=== PATIENT | male | born 1980 | race Caucasian/White ===

== ENCOUNTER 2024-08-08 06:10 | Day surgery (SDC) | payer SELFPAY ==
[2024-08-08] VITALS (13 sets, daily range): BP systolic 102–137; BP diastolic 57–108
[~2024-08-08] VITALS: Ht 182.9 cm; Wt 106.0 kg
[~2024-08-08 06:10] MED LIST: LIONS MANE PO; Vitamin D2000 UNIT PO; [UNRECOGNIZED DRUG - OTHER] PO
[2024-08-08] MEDS ORDERED: Ropivacaine 0.5% HCl/Pf 123.125 MG,EPINEPHrine HCL 0.25 MG,Ketorolac Tromethamine 15 MG... INFIL SCH (06:20)
[2024-08-08] MEDS ORDERED: Lactated Ringer's 1,000 ML IV SCH ×2 (06:20→10:35)
[2024-08-08] MEDS ORDERED: Acetaminophen 500 MG Tab PO SCH ×2 (06:20→16:00)
[2024-08-08] MEDS ORDERED: Chlorhexidine Mouth Care 15 ML UDC MT SCH (06:20)
[2024-08-08] MEDS ORDERED: Tranexamic Acid 100 ML IV SCH (06:20)
[2024-08-08] MEDS ORDERED: CeFAZolin Sodium 2,000 MG in NS 100 ML IV SCH ×2 (06:20→16:00)
[2024-08-08] MEDS ORDERED: OxyCODONE HCL 10 MG TABCR PO SCH (06:20)
[2024-08-08] MEDS ORDERED: propofoL 60 ML IV ONE (07:12)
[2024-08-08] MEDS ORDERED: Midazolam HCl 1MG / ML 2ML Vial ONE (07:12)
[2024-08-08] MEDS ORDERED: FentaNYL Citrate 50 MCG/ML 2 ML Injection ONE ×2 (07:12→10:20)
[2024-08-08] MEDS ORDERED: Ondansetron HCl 2 MG / ML 2ML Vial ONE (07:14)
[2024-08-08] MEDS ORDERED: Dexamethasone Sod Phos 10 MG/ML 1ML VIAL ONE (07:14)
[2024-08-08] MEDS ORDERED: Phenylephrine HCl 100 MCG/ML-NS 10MLSYR (1MG/10ML) ONE (07:14)
--- NOTE | 2024-08-08 07:28 | NUR ---
Ambulatory in Day Surgery WITH STEADY GAIT. History, Chart, Medications and Allergies reviewed before start of procedure. Pre-Op teaching done. Pt verbalizes understanding AND DENIES ANY FURTHER QUESTIONS. ALL OF PT'S BELONGINGS PLACED IN PT'S PERSONAL BAG AND BAG PLACED UNDER GURN.
[2024-08-08] MEDS ORDERED: ePHEDrine Sulfate 50 MG/ML 1ML Injection ONE (07:53)
[2024-08-08] MEDS ORDERED: propofoL 40 ML IV ONE (08:59)
[2024-08-08] MEDS ORDERED: propofoL 20 ML IV ONE (09:41)
[2024-08-08] MEDS ORDERED: FLU VACC TS2024-25(6MOS UP)/PF 45 MCG/0.5 ML SYRINGE IM PRN (10:30)
[2024-08-08] MEDS ORDERED: DiphenhydrAMINE HCL 25 MG Cap PO PRN (10:30)
[2024-08-08] MEDS ORDERED: HYDROmorphone HCl/Pf 1MG SYR IV PRN (10:30)
[2024-08-08] MEDS ORDERED: OxyCODONE HCL 5 MG TAB PO PRN ×2 (10:35)
[2024-08-08] MEDS ORDERED: Ondansetron HCl 2 MG / ML 2ML Vial IV PRN (10:35)
[2024-08-08] MEDS ORDERED: Magnesium Hydroxide Conc 10 ML UDC PO PRN (10:35)
[2024-08-08] MEDS ORDERED: Metoclopramide HCl 5MG / ML 2ML Vial IV PRN (10:35)
[2024-08-08] MEDS ORDERED: Promethazine HCl 25 MG Tab PO PRN (10:40)
[2024-08-08] MEDS ORDERED: Bisacodyl 10 MG Supp PR PRN (10:40)
--- NOTE | 2024-08-08 11:42 | NUR ---
POST OP A+O X4, PT REPORTS TINGLING TO BLE, BUT ABLE TO WIGGLE TOES AND MOVE LEGS. REPORTS 7/10 L KNEE PAIN BUT DECLINES PAIN PILLS AND ONLY REQUESTS TORADOL. TORADOL GIVEN. L KNEE WITH AQUACEL/ANDREW WRAP IS CDI WITH POLAR PACK IN PLACE. PT ALREADY TOLERATED SNACKS WITH NO N/V. POST OP VS STABLE AND IN PROGRESS. CALL LIGHT WITHIN REACH.
[2024-08-08] MEDS ORDERED: Ketorolac Tromethamine 15mg Vial IV SCH (12:00)
[2024-08-08] MEDS ORDERED: ASPI81CH PO (13:51)
--- NOTE | 2024-08-08 14:57 | NUR ---
DISCHARGE PT EDUCATED ON AND RECEIVED PRINTED DC INSTRUCTIONS AND VERB AN UNDERSTANDING. NEW RX SENT ELECTRONICALLY PER PAULINO MARIE. EXTRA AQUACEL DRESSINGS SENT WITH PT. PT GATHERED ALL PERSONAL BELONGINGS. CLEARED THERAPY. PT LEFT WITH AT SIDE AND W/C OUT TO VEHICLE.
[2024-08-08] MEDS ORDERED: Docusate Sodium 100 MG Cap PO SCH (21:00)
[2024-08-09] MEDS ORDERED: Cholecalciferol 1000 Unit Tablet (=25MCG) PO SCH (09:00)
[2024-08-09] MEDS ORDERED: Aspirin 81 MG Chew PO SCH (09:00)
== END 2024-08-08 15:02 | disposition home or self-care (01) ==
LOC: ORSCMMR 06:10 → SURS 11:01 → ORSCMMR 13:17
PROVIDERS: Orthopaedic Surgery
PROC: 8E0Y0CZ Robotic Assisted Procedure of Lower Extremity, Open Approach (ICD-10-PCS; principal; 2024-08-08 07:30)
PROC: 0SRD0JA Replacement of Left Knee Joint with Synthetic Substitute, Uncemented, Open Approach (ICD-10-PCS; principal; 2024-08-08 07:30)
DX: M17.12 Unilateral primary osteoarthritis, left knee (principal); E66.9 Obesity, unspecified; Z68.31 Body mass index [BMI] 31.0-31.9, adult
CPT/HCPCS: 73560-LT; 97110; 97116; 97162; 97530; A9270; C1713; C1776; J0171; J0690; J0735; J1100; J1885; J2250; J2371; J2405; J2704; J2795; J3010; J7120